=== PATIENT | male | born 1990 | race Caucasian/White ===

== ENCOUNTER 2022-01-13 12:00 | Emergency (ER) | payer OTHER ==
[~2022-01-13] VITALS: Ht 162.6 cm; Wt 86.2 kg
[~2022-01-13 12:00] MED LIST: PEPCID20 MG PO
[2022-01-13] MEDS ORDERED: PEPCID20 MG PO (13:25)
== END 2022-01-13 16:03 | disposition home or self-care (01) ==
LOC: ER 12:00
DX: E86.0 Dehydration (principal); K52.9 Noninfective gastroenteritis and colitis, unspecified; Z20.822 Contact with and (suspected) exposure to COVID-19

== ENCOUNTER → 2022-02-08 07:33 | Outpatient (CLI) | payer OTHER | END | disposition home or self-care (01) | LOC: NUCLEAR 07:00 | PROVIDERS: ATTEND Specialist | DX: K81.9 Cholecystitis, unspecified (principal) | CPT/HCPCS: 78227; A9537; J2805 ==

== ENCOUNTER 2024-06-15 11:56 | Emergency (ER) | payer OTHER ==
[~2024-06-15] VITALS: Ht 160 cm; Wt 62.6 kg
[2024-06-15] MEDS ORDERED: ONDANSETRON HCL 2 MG/ML VIAL IV ONE (14:00)
[2024-06-15] MEDS ORDERED: HYOSCYAMINE SULFATE 0.125 MG TAB.SUBL SL ONE (14:00)
[2024-06-15] MEDS ORDERED: 0.9 % SODIUM CHLORIDE 1,000 ML IV ONE (14:00)
[2024-06-15 14:35] LABS: HEMATOCRIT 50.1 % (39.0-48.0); HEMOGLOBIN 17.5 g/dL (13-16.00); MEAN CELL VOLUME 87.5 fL (80.0-100.00); MEAN CORPUSCULAR HEMOGLOBIN 30.6 pg (27.00-32.0); PLATELET COUNT 173 K/uL (150-450); RED BLOOD COUNT 5.73 M/uL (4.00-6.00); RED CELL DISTRIBUTION WIDTH 13.4 % (11.5-14.5)
[2024-06-15 14:50] LABS: ALBUMIN 4.6 gm/dL (3.4-5.0); BILIRUBIN TOTAL 1.12 mg/dL (0.3-1.2); CALCIUM 9.6 mg/dL (8.5-10.1); CREATININE SERUM 1.11 mg/dL (0.70-1.30); GFR 75.83; GLOBULINA 4.4 G/DL (2.4-3.5); POTASSIUM 4.18 mEq/L (3.5-5.1)
[2024-06-15 16:07] LABS: HEMATOCRIT 46.7 % (39.0-48.0); HEMOGLOBIN 15.8 g/dL (13-16.00); MEAN CELL VOLUME 88.6 fL (80.0-100.00); MEAN CORPUSCULAR HGB CONC 33.9 g/dl (32.0-36.0); PLATELET COUNT 150 K/uL (150-450); RED BLOOD COUNT 5.27 M/uL (4.00-6.00); RED CELL DISTRIBUTION WIDTH 13.3 % (11.5-14.5)
[2024-06-15] MEDS ORDERED: LOPERAMIDE HCL 2 MG CAPSULE PO ONE (19:00)
[2024-06-15] MEDS ORDERED: METRONIDAZOLE/SODIUM CHLORIDE 500 MG/100 ML PIGGYBACK IV ONE (19:00)
[2024-06-15] MEDS ORDERED: MAG HYDROX/ALUMINUM HYD/SIMETH 30 ML BLIST.PACK PO ONE (19:00)
[2024-06-15] MEDS ORDERED: KETOROLAC TROMETHAMINE 30 MG VIAL IV ONE (21:30)
== END 2024-06-15 22:17 | disposition home or self-care (01) ==
LOC: ER 11:58
PROVIDERS: General Practice
DX: A04.9 Bacterial intestinal infection, unspecified (principal); K52.9 Noninfective gastroenteritis and colitis, unspecified; R11.10 Vomiting, unspecified; Z20.822 Contact with and (suspected) exposure to COVID-19

== ENCOUNTER 2024-07-17 10:09 | Emergency (ER) | payer OTHER ==
[~2024-07-17] VITALS: Ht 162.6 cm; Wt 62.6 kg
[2024-07-17 10:31] VITALS: BP 125/87; O2SAT 97
[2024-07-17] MEDS ORDERED: MEDROLPACK PO (14:07)
[2024-07-17] MEDS ORDERED: METHYLPREDNISOLONE SOD SUCC 125 MG VIAL IM ONE (14:15)
[2024-07-17] MEDS ORDERED: DIPHENHYDRAMINE HCL 50 MG/ML VIAL 1ML IM ONE (14:15)
== END 2024-07-17 14:55 | disposition home or self-care (01) ==
LOC: ER 10:11
DX: K13.0 Diseases of lips (principal)